=== PATIENT | female | born 1985 | race Two or more races ===

== ENCOUNTER 2016-03-05 08:56 | Observation (INO) | payer OTHER ==
[2016-03-05] VITALS (9 sets, daily range): BP systolic 122–150; BP diastolic 64–88
[~2016-03-05] VITALS: Ht 154.9 cm; Wt 93.9 kg
[~2016-03-05 08:56] MED LIST: CEFAZOLIN 2GM PREMIX 50 ML IV PRN; FENTANYL PF 100 MCG/2 ML VIAL. IV PRN; HYDROMORPHONE 2 MG/ML VIAL. IV PRN; IV RINGERS,LACTATED 1000ML 1,000 ML IV SCH; LIDOCAINE 1% 1 ML SYRINGE. ID PRN; MORPHINE SULFATE 2 MG/ML DISP.SYRIN. IV PRN; ONDANSETRON PF 4 MG/2 ML VIAL. IV PRN; OXYC-323 PO; PROCHLORPERAZINE 10 MG/2 ML VIAL. IV PRN
[2016-03-05] MEDS ORDERED: LIDOCAINE 1% / SOD BICARB 8.4% 20 ML VIAL. IJ ONE ×2 (09:30→10:45)
[2016-03-05 09:46] LABS: NEG OBC UR NEG; POS OBC UR POS
--- NOTE | 2016-03-05 11:09 | RAD ---
Left breast needle localization, 03/05/2016: History: Breast cancer Under mammographic guidance we target the breast biopsy marker at the 11:00 location in the left breast. There has been interval neoadjuvant chemotherapy. No discrete breast mass is currently seen. Under local anesthesia, aseptic conditions and mammographic guidance the Kopan's needle with modified retention wire was passed into this region via a medial approach. The needle was removed and the final images show that the biopsy marker lies directly anterior to the midportion of the thickened part of the retention wire approximately 6.5 cm deep to the skin surface. The patient tolerated the procedure well and was sent to surgery in good condition.
[2016-03-05] MEDS ORDERED: FAMOTIDINE 20 MG/2 ML VIAL ONE (11:36)
[2016-03-05] MEDS ORDERED: LIDOCAINE 2% 100 MG/5 ML DISP.SYRIN. ONE (11:36)
[2016-03-05] MEDS ORDERED: ONDANSETRON PF 4 MG/2 ML VIAL. ONE (11:36)
[2016-03-05] MEDS ORDERED: PROPOFOL 20 ML IV ONE ×3 (11:36→13:08)
[2016-03-05] MEDS ORDERED: FENTANYL PF 100 MCG/2 ML VIAL. ONE ×2 (11:36→13:31)
[2016-03-05] MEDS ORDERED: DEXAMETHASONE SOD PHOS 20 MG/5 ML VIAL. ONE (11:36)
[2016-03-05] MEDS ORDERED: LIDOCAINE 1%/EPI 1:100,000 20 ML VIAL. ONE (11:37)
[2016-03-05] MEDS ORDERED: ISOSULFAN BLUE 50 MG/5 ML VIAL. SQ ONE (11:37)
[2016-03-05] MEDS ORDERED: BUPIVAC MPF-EPI 0.5%-1:200000 30 ML VIAL. ONE (11:37)
--- NOTE | 2016-03-05 12:00 | RAD ---
Indication: Left breast carcinoma. A total of 1.0 mCi of technetium 99m sulfur colloid was injected in the left breast subdermal tissues in the periareolar location in 4 separate aliquots. The patient tolerated well. The patient was sent to surgery in satisfactory condition. No imaging was performed. Impression: Left breast sentinel node injection, as described.
[2016-03-05] MEDS ORDERED: MIDAZOLAM HCL 2 MG/2 ML VIAL. ONE (12:41)
[2016-03-05] MEDS ORDERED: ROCURONIUM 50 MG/5 ML VIAL. ONE (13:01)
[2016-03-05] MEDS ORDERED: SUCCINYLCHOLINE 200 MG/10 ML VIAL. ONE (13:01)
[2016-03-05] MEDS ORDERED: SEVOFLURANE > 120 MINUTES. IH ONE (13:08)
[2016-03-05] MEDS ORDERED: PROPOFOL 50 ML IV ONE ×2 (13:43)
--- NOTE | 2016-03-05 14:32 | RAD ---
Right specimen mammogram, 03/05/2016: History: Breast cancer A single digital mammogram of a surgical specimen from the right breast demonstrates the modified Kopans retention wire within the specimen. The targeted breast biopsy marker is present in the specimen at the C-I level in the specimen container.
[2016-03-05] MEDS ORDERED: ONDANSETRON PF 4 MG/2 ML VIAL. IV PRN (14:45)
[2016-03-05] MEDS ORDERED: HYDROMORPHONE 2 MG/ML VIAL. IV PRN ×3 (14:45→15:00)
[2016-03-05] MEDS ORDERED: 0.9 % SODIUM CHLORIDE 10 ML DISP.SYRIN. IV PRN (14:45)
[2016-03-05] MEDS ORDERED: OXYCODONE/APAP 5/325 TABLET. PO PRN ×2 (14:45)
[2016-03-05] MEDS ORDERED: PROCHLORPERAZINE 10 MG/2 ML VIAL. IV PRN (14:45)
--- NOTE | 2016-03-05 14:56 | PDOC4 ---
Operative Note Operative Note Operative Note: Preoperative Diagnosis: Left breast cancer Postoperative Diagnosis: Same Procedure: Left segmental mastectomy with wire localization, left axillary sentinel lymph node biopsy, removal of Port-A-Cath Surgeon: Orlin Sole Molding Machine Operator: Ramila DURAN Anesthesia: Gen. EBL: 150 mL Specimen: Axillary sentinel lymph nodes 1-5 to pathology, left segmental mastectomy short stitch superficial long stitch lateral to pathology, additional superior, inferior, lateral margins to pathology Drains: None Complications: None Indication: The patient is a 30-year-old female who underwent neoadjuvant chemotherapy for left breast cancer. She is now ready for surgical treatment. She had a very good response to chemotherapy with significant tumor regression. She is interested in breast conservation and has elected for a segmental mastectomy and wire localization will be utilized. We also will include an axillary sentinel lymph node biopsy and removal of the Port-A-Cath as per her oncologist wishes. The risks of surgery were discussed which include bleeding, infection, scar tissue, pain, anesthetic risk, potential need for additional surgery or procedure particularly pending final pathology results. She understands all of this and would like to proceed. Description: The patient was taken to the operating room following wire localization and injection of technetium sulfur colloid in nuclear medicine. Gen. anesthesia was performed. The left breast and axilla were prepped with ChloraPrep and draped in a standard surgical manner. 5 mL of Lymphazurin were injected deep to the nipple areolar complex. Several minutes were allowed to elapse. An incision was made in the skin of the axilla with a scalpel. Cautery dissection was carried down to the axillary tissue. Initial inspection with the radio guided probe showed an area of marked nuclear uptake. Dissection in this region showed blue staining channels directed toward it. This then corresponded to a blue staining lymph node. This was harvested and labeled sentinel lymph node #1 and sent to pathology. Further inspection of the axilla showed several other areas of increased nuclear uptake corresponding to lymph nodes. These were also each harvested from the surrounding tissue with cautery dissection. A total of for additional lymph nodes were removed which were hot and none of them stained blue. They were also sent to pathology for evaluation. There was some additional tissue that was excised in order to reach some of the more deeper sentinel nodes. This was sent in formalin to pathology labeled additional axillary tissue. Palpation showed no gross remaining adenopathy. Frozen section of the 5 lymph nodes showed no evidence of metastatic disease. We then proceeded with the lumpectomy. The wire was entering the breast in the upper inner quadrant. An incision was made in the skin lines of the breast superior to the nipple and closer to the expected area of the wire termination. Cautery dissection was carried down to the breast parenchyma. The wire was identified in its proximal portion. With cautery dissection the lumpectomy specimen was then performed heading in the trajectory of the distal tip of the wire. A fairly generous lumpectomy specimen was obtained and we were able to get around the tip of the wire. Several blood vessels were encountered during this which were readily controlled with cautery. The lumpectomy specimen was tagged with a short silk stitch at the superficial margin and a long stitch at the lateral margin. This was then sent for specimen radiographs. The radiographs confirmed the presence of the biopsy clip. Hemostasis was again readily achieved with cautery. No other gross abnormalities were identified. Some of the deeper breast parenchyma was approximated with interrupted 0 Vicryl sutures to close some of the space. We then directed our attention to the right chest. An incision was made at the site of the prior Port-A-Cath placement scar. Cautery dissection was carried down to the capsule of the port which was opened. The attached Prolene sutures were cut and the Port-A-Cath was readily removed and discarded. The catheter tract was oversewn with a 2-0 Vicryl suture. The subcutaneous tissue at each of the incision sites was approximated with interrupted 3-0 Vicryl. The skin was then closed with a 4-0 Monocryl running suture. Sterile OpSite dressings were placed at each incision. The patient tolerated the procedure well and was sent to the recovery room in stable condition. At the end of the case all counts were correct. ALLEN ACEVEDO MD Mar 05, 2016 14:56
[2016-03-05] MEDS: POTASSIUM CL 20MEQ D5-0.45NACL 1,000 ML IV SCH (17:32)
[2016-03-06] MEDS: POTASSIUM CL 20MEQ D5-0.45NACL 1,000 ML IV SCH (00:43)
[2016-03-06 03:00] VITALS: BP 111/68
[2016-03-06 07:00] VITALS: BP 117/68
--- NOTE | 2016-03-06 08:33 | PDOC ---
PROGRESS NOTES Subjective Subjective doing well Objective Objective Vital Signs Date Time Temp Pulse Resp B/P Pulse Ox O2 Delivery O2 Flow Rate FiO2 03/06/16 03:00 97.9 90 18 111/68 98 Room Air 97.9 03/05/16 20:00 2.0 Intake and Output 03/06/16 07:00 Intake Total 940 ml Output Total 705 ml Balance 235 ml Intake Oral 240 ml IV Total 700 ml Output Urine Total 605 ml Emesis 100 ml Physical Exam Physical Exam dressings intact Assessment Assessment Problems Medical Problems: (1) Breast cancer, left Status: Acute Plan Plan of Care discharge Comment Review of Relevant I have reviewed the following items thomas (where applicable) has been applied. Labs Laboratory Tests Test 03/05/16 08:25 Urine Test Negative (NEG) Medications Current Medications Ondansetron HCl (Zofran) 4 mg PRN Q6HRS PRN IV Nausea; Start 03/05/16 at 07:00 ; Stop 03/06/16 at 06:59; Status DC Fentanyl Citrate (Fentanyl 2ml Vial) 25 mcg PRN Q5MIN PRN IV MILD PAIN; Start 03/05/16 at 07:00; Stop 03/06/16 at 06:59; Status DC Fentanyl Citrate (Fentanyl 2ml Vial) 50 mcg PRN Q5MIN PRN IV MODERATE PAIN Last administered on 03/05/16 15:45; Start 03/05/16 at 07:00; Stop 03/06/16 at 06:59; Status DC Morphine Sulfate 1 mg 1 mg PRN Q10MIN PRN IV SEVERE PAIN; Start 03/05/16 at 07: 00; Stop 03/06/16 at 06:59; Status DC Lactated Ringer's (Iv Lactated Ringers) 1,000 ml @ 30 mls/hr Q24H IV Last administered on 03/05/16 09:46; Start 03/05/16 at 07:00; Stop 03/05/16 at 18:59 ; Status DC Lidocaine HCl 2 ml 1X PRN PRN ID IV START; Start 03/05/16 at 07:00; Stop at 06:59; Status DC Hydromorphone HCl (Dilaudid) 0.5 mg PRN Q10MIN PRN IV SEVERE PAIN, Second choice; Start 03/05/16 at 07:00; Stop 03/06/16 at 06:59; Status DC Prochlorperazine Edisylate 5 mg 5 mg PACU PRN PRN IV NAUSEA; Start 03/05/16 at 07:00; Stop 03/06/16 at 06:59; Status DC Cefazolin Sodium/ Dextrose (Ancef 2gm Premix) 50 ml @ 100 mls/hr 1X PREOP PRN IV PRIOR TO PROCEDURE Last administered on 03/05/16 12:30; Start 03/05/16 at 06 :00; Stop 03/05/16 at 18:00; Status DC Lidocaine/Sodium Bicarbonate (Buffered Lidocaine 1%) 20 ml 1X ONCE IJ Last administered on 03/05/16 10:48; Start 03/05/16 at 09:30; Stop 03/05/16 at 09:31 ; Status DC Lidocaine/Sodium Bicarbonate (Buffered Lidocaine 1%) 0.5 ml 1X ONCE IJ Last administered on 03/05/16 11:41; Start 03/05/16 at 10:45; Stop 03/05/16 at 10:50 ; Status DC Dexamethasone Sodium Phosphate (Decadron) 20 mg STK-MED ONCE .ROUTE ; Start at 11:36; Stop 03/05/16 at 11:37; Status DC Famotidine (Pepcid) 20 mg STK-MED ONCE .ROUTE ; Start 03/05/16 at 11:36; Stop at 11:37; Status DC Ondansetron HCl 4 mg 4 mg STK-MED ONCE .ROUTE ; Start 03/05/16 at 11:36; Stop at 11:37; Status DC Propofol (Diprivan) 20 ml @ As Directed STK-MED ONCE IV ; Start 03/05/16 at 11: 36; Stop 03/05/16 at 11:37; Status DC Lidocaine HCl 100 mg STK-MED ONCE .ROUTE ; Start 03/05/16 at 11:36; Stop at 11:37; Status DC Fentanyl Citrate (Fentanyl 2ml Vial) 100 mcg STK-MED ONCE .ROUTE ; Start at 11:36; Stop 03/05/16 at 11:37; Status DC Lidocaine/ Epinephrine (Xylocaine 1%-Epi 1:100,000) 20 ml STK-MED ONCE .ROUTE ; Start 03/05/16 at 11:37; Stop 03/05/16 at 11:38; Status DC Bupivacaine HCl/ Epinephrine Bitart (Sensorcain-Mpf Epi 0.5%-1:[id number]) 30 ml STK -MED ONCE .ROUTE ; Start 03/05/16 at 11:37; Stop 03/05/16 at 11:38; Status DC Isosulfan Blue (Isosulfan Blue) 50 mg STK-MED ONCE SQ Last administered on 03/05t 12:45; Start 03/05/16 at 11:37; Stop 03/05/16 at 11:38; Status DC Midazolam HCl (Versed) 2 mg STK-MED ONCE .ROUTE ; Start 03/05/16 at 12:41; Stop 03/05/16 at 12:42; Status DC Rocuronium [place] (Zemuron) 50 mg STK-MED ONCE .ROUTE ; Start 03/05/16 at 13:01 ; Stop 03/05/16 at 13:02; Status DC Succinylcholine Chloride 200 mg 200 mg STK-MED ONCE .ROUTE ; Start 03/05/16 at 13:01; Stop 03/05/16 at 13:02; Status DC Propofol (Diprivan) 20 ml @ As Directed STK-MED ONCE IV ; Start 03/05/16 at 13: 08; Stop 03/05/16 at 13:09; Status DC Sevoflurane 90 ml 90 ml STK-MED ONCE IH ; Start 03/05/16 at 13:08; Stop at 13:09; Status DC Propofol (Diprivan) 20 ml @ As Directed STK-MED ONCE IV ; Start 03/05/16 at 13: 08; Stop 03/05/16 at 13:09; Status DC Fentanyl Citrate 100 mcg 100 mcg STK-MED ONCE .ROUTE ; Start 03/05/16 at 13:31; Stop 03/05/16 at 13:32; Status DC Propofol 50 ml @ As Directed STK-MED ONCE IV ; Start 03/05/16 at 13:43; Stop at 13:44; Status DC Propofol (Diprivan) 50 ml @ As Directed STK-MED ONCE IV ; Start 03/05/16 at 13: 43; Stop 03/05/16 at 13:44; Status DC Sodium Chloride 3 ml 3 ml QSHIFT PRN IV AFTER MEDS AND BLOOD DRAWS; Start 03/05 at 14:45 Potassium Chloride/Dextrose/ Sod Cl (KCl 20 Meq In D5W-1/2 NS) 1,000 ml @ 100 mls/hr Q10H IV Last administered on 03/05/16 17:32; Start 03/05/16 at 14:43 Oxycodone/ Acetaminophen (Percocet 5/325) 1 tab PRN Q4HRS PRN PO MILD PAIN, 1ST CHOICE Last administered on 03/05/16 18:07; Start 03/05/16 at 14:45 Oxycodone/ Acetaminophen (Percocet 5/325) 2 tab PRN Q4HRS PRN PO MODERATE PAIN , SEVERE PAIN; Start 03/05/16 at 14:45 Hydromorphone HCl (Dilaudid) 0.2 mg Q2HR PRN IV PAIN; Start 03/05/16 at 14:45; Stop 03/05/16 at 14:50; Status DC Ondansetron HCl (Zofran) 4 mg PRN Q6HRS PRN IV NAUESA, 1ST CHOICE Last administered on 03/05/16 17:44; Start 03/05/16 at 14:45 Prochlorperazine Edisylate (Compazine) 5 mg PRN Q6HRS PRN IV N/V, 2nd Choice, MR X1; Start 03/05/16 at 14:45 Hydromorphone HCl (Dilaudid) 0.5 mg PRN Q2HRS PRN IV PAIN; Start 03/05/16 at 15 :00 Hydromorphone HCl (Dilaudid) 0.2 mg PRN Q2HRS PRN IV PAIN; Start 03/05/16 at 14 :50 Active Scripts Active Reported Percocet 5-325 Mg Tablet (Oxycodone/Acetaminophen) 1 Each Tablet 1-2 Tab PO Q4- 6HRS No Known Medications Prior To Admisstion (Info) Each 1 Each Vitals/I & O Vital Sign - Last 24 Hours 03/05/16 03/05/16 03/05/16 03/05/16 09:37 09:43 15:19 15:19 Temp 97.0 97.0 97.5 97.0 97.0 97.5 Pulse 85 85 97 Resp 20 20 16 B/P 130/65 135/59 Pulse Ox 100 100 95 O2 Delivery Room Air Simple Mask Mask O2 Flow Rate 10 10 03/05/16 03/05/16 03/05/16 03/05/16 15:34 15:40 15:45 15:49 Pulse 110 108 Resp 18 18 18 B/P 143/64 149/76 Pulse Ox 97 96 91 O2 Delivery Simple Mask Nasal Cannula Nasal Cannula Room Air O2 Flow Rate 10 2 2.0 03/05/16 03/05/16 03/05/16 03/05/16 16:04 16:19 16:30 16:30 Temp 97.1 97.1 97.7 97.7 97.1 97.1 97.7 97.7 Pulse 105 108 114 114 Resp 18 18 20 20 B/P 133/61 154/53 132/86 132/86 Pulse Ox 96 96 98 98 O2 Delivery Nasal Cannula Nasal Cannula Nasal Cannula Nasal Cannula O2 Flow Rate 3 2 2.0 2.0 03/05/16 03/05/16 03/05/16 03/05/16 16:45 17:00 17:15 18:00 Temp 97.9 97.9 97.9 97.9 Pulse 110 102 95 99 Resp 18 18 18 18 B/P 150/78 127/69 141/82 126/66 Pulse Ox 98 96 96 95 O2 Delivery Nasal Cannula Room Air Room Air Room Air O2 Flow Rate 2.0 03/05/16 03/05/16 03/05/16 03/05/16 18:07 18:17 18:30 19:07 Pulse 99 Resp 18 16 B/P 135/88 Pulse Ox 98 95 95 O2 Delivery Room Air Room Air Room Air Room Air 03/05/16 03/05/16 03/05/16 03/05/16 19:30 20:00 20:30 23:00 Temp 98.1 98.1 98.1 98.1 Pulse 103 110 95 Resp 18 18 18 B/P 135/86 145/86 122/64 Pulse Ox 96 95 97 O2 Delivery Room Air Room Air Room Air Room Air O2 Flow Rate 2.0 03/06/16 03:00 Temp 97.9 97.9 Pulse 90 Resp 18 B/P 111/68 Pulse Ox 98 O2 Delivery Room Air Intake and Output 03/05/16 03/05/16 03/06/16 15:00 23:00 07:00 Intake Total 50 ml 770 ml 120 ml Output Total 380 ml 325 ml Balance 50 ml 390 ml -205 ml ALLEN ACEVEDO MD Mar 06, 2016 08:33
--- NOTE | 2016-03-06 08:35 | DISCH ---
DISCHARGE INSTRUCTIONS Condition on Discharge Condition on Discharge: Stable Activity After Discharge Activity Instructions for Disc: Resume previous activity Diet after Discharge Diet after Discharge: Regular Wound Incision Care Wound/Incision Care: Other, see below (keep dressings clean and dry) Follow-Up Follow up with: Dr Acevedo in 1 week in office, ALLEN ACEVEDO MD Mar 06, 2016 08:35
--- NOTE | 2016-03-06 08:36 | PDOC3 ---
Discharge Summary Visit Information Date of Admission: Mar 05, 2016 Date of Discharge: Mar 06, 2016 Admitting Diagnosis: Left breast cancer Final Diagnosis Problems Medical Problems: (1) Breast cancer, left Status: Acute Brief Hospital Course Allergies Allergies Coded Allergies Type Severity Reaction Last Updated Verified No Known Drug Allergies 03/05/16 No Vital Signs Vital Signs Date Time Temp Pulse Resp B/P Pulse Ox O2 Delivery O2 Flow Rate FiO2 03/06/16 03:00 97.9 90 18 111/68 98 Room Air 97.9 03/05/16 20:00 2.0 Lab Results Laboratory Tests Test 03/05/16 08:25 Urine Test Negative (NEG) Brief Hospital Course Ms. Jones is a 30 old female who presented with left breast cancer. She underwent a left segmental mastectomy with sentinel lymph node biopsy. Her postoperative course was uneventful and she is stable for discharge on POD 1. Discharge Information Scheduled Oxycodone/Apap 5-325 (Percocet 5-325 Mg Tablet) 1-2 TAB PO Q4-6HRS (Reported) Miscellaneous Medications Info (No Known Medications Prior To Admisstion) 1 EACH (Reported) ALLEN ACEVEDO MD Mar 06, 2016 08:36
[2016-03-06 11:00] VITALS: BP 119/65
--- NOTE | 2016-03-10 16:45 | PATHOLOGY ---
PATHOLOGY REPORT * * * * * * * * FINAL DIAGNOSIS: A. Lymph node, sentinel lymph node #1 hot and blue: - Negative for tumor. B. Lymph node, sentinel lymph node #2 hot: - Negative for tumor. C. Lymph node, sentinel lymph node #3 hot: - Negative for tumor. D. Lymph nodes and adipose tissue, additional axillary tissue: - Four lymph nodes negative for tumor (0/4). E. Lymph nodes, sentinel lymph node #4 hot: - Three lymph nodes negative for tumor (0/3). F. Lymph node, sentinel lymph node #5 hot: - Negative for tumor. G. Breast tissue, left breast lumpectomy: - No residual invasive ductal carcinoma identified. - Previous biopsy site showing biopsy marker with fibrosis, chronic inflammation, remote hemorrhage, and focal foreign body giant cell reaction. - Inked margins of resection negative for tumor. - Stromal fibrosis with focal mild duct ectasia and duct stasis. - Fibroadenomatous change, focal. H. Breast tissue, additional inferior margin: - Focal stromal fibrosis-negative for tumor. I. Breast tissue, additional superior margin: - Focal stromal fibrosis-negative for tumor. J. Breast tissue, additional lateral margin: - Stromal fibrosis and focal mild duct ectasia-negative for tumor. - Fibroadenomatous change, focal. COMMENT: Sections of the left breast lumpectomy reveal a previous biopsy site showing a biopsy marker with associated fibrosis, chronic inflammation, remote hemorrhage, and focal foreign body giant cell reaction. There is no residual invasive high-grade ductal carcinoma. There are a total of seven sentinel lymph nodes. Immunoperoxidase stains for AE1/AE3 are obtained on the sentinel lymph nodes and yield the following results: AE1/AE3 (A1): negative for tumor AE1/AE3 (B1): negative for tumor AE1/AE3 (C1): negative for tumor AE1/AE3 (E1): three lymph nodes negative for tumor AE1/AE3 (F1): negative for tumor Thus there are seven sentinel lymph nodes which are negative for tumor. There are four additional axillary lymph nodes submitted for examination, all of which are negative for tumor. (JPM:; d/t: 03/09/16) Special Stain: AE1/AE3 (A1, B1, C1, E1, F1) REPORT ELECTRONICALLY SIGNED BY: Carlos Monroe M.D. DATE/TIME: 03/10/2016 16:44 * * * * * * * * GROSS PATHOLOGY: A. The specimen is received fresh for intraoperative consultation and is designated "lymph node #1 hot and blue." This consists of an irregular segment of yellow-red fatty appearing tissue measuring up to 3.0 cm in greatest dimension and showing focal dark brown cautery changes. Sectioning reveals a single brown lymph node showing focal bluish discoloration measuring up to 1.2 cm in greatest dimension. There is a rounded conner marker associated with this lymph node. There is no gross evidence of tumor replacement. This is submitted for frozen section as FSA1. The tissue remaining from frozen section is submitted for permanent sections as A1. B. The specimen is received fresh for intraoperative consultation and is designated "lymph node #2 hot." This consists of an ovoid-shaped segment of yellow-red fatty appearing tissue measuring up to 3.6 x 3.0 cm. On sectioning, this contains a pinkish brown partially fatty replaced lymph node measuring up to 1.5 cm. There is no gross evidence of tumor replacement. This lymph node is submitted for frozen section as FSB1. The tissue remaining from frozen section is submitted for permanent sections as B1. C. The specimen is received fresh for intraoperative consultation and is designated "lymph node #3 hot." This consists of a segment of yellow-red fatty tissue measuring up to 2.0 cm in greatest dimension. This contains a pinkish brown lymph node measuring up to 0.8 cm in greatest dimension. This is submitted for frozen section as FSC1. The tissue remaining from frozen section is submitted for permanent sections as C1. (MIKEM:mgpriyanka; d/t: 03/05/16) D. The specimen is received in formalin labeled "Marbella Robert, additional axillary tissue". Received are multiple segments of yellow-lynch lobulated tissue measuring 4.8 x 4.6 x 2.0 cm in aggregate dimensions. Dissection and palpation of the specimen reveals four readily identifiable lymph nodes ranging in size from 0.4 to 1.1 cm in maximum dimensions. The lymph nodes are submitted as follows: D1 two intact lymph nodes D2-D3 one bisected lymph node in each cassette. (CAA; 03/06/2016) E. The specimen is received fresh for intraoperative consultation and is designated "lymph node #4 hot." This consists of an irregular segment of yellow-red fatty appearing tissue measuring up to 3.4 cm in greatest dimension. Sectioning reveals a few small slightly firm lymph nodes, the largest of which measures up to 0.5 cm. These are submitted for frozen section as FSE1. The tissue remaining from frozen section is submitted for permanent sections as E1. F. The specimen is received fresh for intraoperative consultation and is designated "lymph node #5 hot." This consists of a segment of yellow-red fatty appearing tissue measuring up to 1.6 cm in greatest dimension. This contains a yellowish lynch lymph node measuring up to 0.9 cm. This is submitted for frozen section as FSF1. The tissue remaining from frozen section is submitted for permanent sections as F1. (JPM:mgr; d/t: 03/05/16) G. The specimen is received in formalin labeled "Marbella Zaidi, left lumpectomy, short stitch superficial, long stitch lateral". Received is a 131 g lumpectomy specimen oriented with a short suture designating the superficial/anterior margin and a long suture designating the lateral margin. The specimen measures 11.8 cm from medial to lateral, 9.1 cm from superficial/anterior to deep/posterior, and 2.3 cm from superior to inferior. There is a localization wire present which enters through the superficial/anterior/medial aspect. The specimen is inked as follows: Superior-blue, inferior-green, lateral-red, medial-yellow, superficial/anterior-black, deep/posterior-orange. Sectioning reveals white-lynch, fibrous yellow-lynch, lobulated cut surfaces throughout, with the fibrous tissue focused from the middle aspect to lateral aspect of the specimen. A previous biopsy site is not grossly distinct; however, a metallic clip is located embedded within the fibrous tissue. The fibrous tissue encompasses approximately 35% of the specimen. The specimen is submitted representatively as follows: G1 most lateral margin G2 most medial margin G3-G10 health and safety representative sections from fibrous tissue, with the sections where the clip was embedded submitted in cassettes G9 and G10. The cold ischemic time is 24 minutes. The total formalin fixation time is 65 hours and 50 minutes. H. The specimen is received in formalin labeled "Marbella Robert, inferior additional margin". Received is a 10 g unoriented segment of yellow-lynch, lobulated to white-lynch, fibrous tissue measuring 5.0 x 3.5 x 1.7 cm in greatest dimensions. The surgical margin is inked. Sectioning reveals bright yellow, lobulated to white-lynch, fibrous cut surfaces throughout with no grossly distinct residual tumor. Alternating sections are submitted in cassettes H1 through H6. The cold ischemic time is 7 minutes. The total formalin fixation time is 65 hours and 27 minutes. I. The specimen is received in formalin labeled "Marbella Robert, superior additional margin". Received is a 3 g unoriented segment of yellow-lynch lobulated tissue measuring 4.1 x 2.7 x 0.9 cm in greatest dimensions. The surgical margin is inked. Sectioning reveals yellow-lynch, lobulated cut surfaces throughout with no grossly distinct nodules or lesions. The specimen is submitted entirely in cassettes I1 through I5. The cold ischemic time is 7 minutes. The total formalin fixation time is 65 hours and 27 minutes. J. The specimen is received in formalin labeled "Marbella Robert, lateral additional margin". Received is a 4 g unoriented segment of yellow-lynch lobulated to white-lynch fibrous tissue measuring 3.9 x 2.7 x 1.0 cm in greatest dimensions. The surgical margin is inked. Sectioning reveals white-lynch, fibrous to yellow-lynch, lobulated cut surfaces throughout with no grossly distinct nodules or lesions. The specimen is submitted entirely in cassettes J1-J5. The cold ischemic time is 7 minutes. The total formalin fixation time is 65 hours and 27 minutes. (CAA; 03/06/2016) FROZEN SECTION DIAGNOSIS: (Eyal Monroe M.D.) A. Lymph node #1 hot and blue: - Negative for tumor. The results are telephoned to Dr. Ordaz in the operating room. B. Lymph node #2 hot: - Negative for tumor. The results are telephoned to Dr. Ordaz in the operating room. C. Lymph node #3 hot: - Negative for tumor. The results are telephoned to Dr. Ordaz in the operating room. E. Lymph node #4 hot: - Negative for tumor. The results are telephoned to Dr. Ordaz in the operating room. F. Lymph node #5 hot: - Negative for tumor. The results are telephoned to Dr. Ordaz in the operating room. (JPM:; d/t: 03/05/16) Testing performed by [facility] at [place] [address] INITIAL CPT CODE(S): 72291(6), 44628(4), 88810(5), 44727, 56747(4) Professional services performed by [facility] at [address] [address] Technical services performed by [facility] at [address] [place] [address], [address], [place] [address]. SPECIMEN(S) RECEIVED: A.[place] lymph node #1, hot and blue B.[place] lymph node #2, hot C.[place] lymph node #3, hot D.Additional axillary tissue E.[place] lymph node #4, hot F.[place] lymph node #5, hot G.Left lumpectomy H.Inferior additional margins I.Superior additional margins J.Lateral additional margins CLINICAL HISTORY: Malignant neoplasm left breast PATIENT: MARBELLA ZAIDI /AGE: 506/10/1985 (Age: 30) PATIENT #: [id number] ALT CASE #: SPECIMEN COLLECTION DATE: 03/05/2016 SPECIMEN RECEIVED DATE: 03/05/2016 [facility] - [address] [place] [address] - PHONE: [phone] * * * END OF REPORT * * *
== END 2016-03-06 11:15 | disposition home or self-care (01) ==
LOC: MAMMO 08:56 → 4 NORTH 14:43
PROVIDERS: ADMIT Surgery; ATTEND Surgery
DX: C50.912 Malignant neoplasm of unspecified site of left female breast (principal)
CPT/HCPCS: 19281; 19301; 36590; 38500; 38792; 76098; 81025; 96374; A9541; C1769; G0378; G0379; J0330; J0690; J1100; J2250; J2405; J2704; J3010; Q9968; S0028; 88305; 88307; 88342; J3490; J7120; G0641

== ENCOUNTER → 2016-04-06 | Outpatient (CLI) | payer OTHER ==
[~2016-04-06] MED LIST changes: -CEFAZOLIN 2GM PREMIX 50 ML IV PRN; -FENTANYL PF 100 MCG/2 ML VIAL. IV PRN; -HYDROMORPHONE 2 MG/ML VIAL. IV PRN; -IV RINGERS,LACTATED 1000ML 1,000 ML IV SCH; -LIDOCAINE 1% 1 ML SYRINGE. ID PRN; -MORPHINE SULFATE 2 MG/ML DISP.SYRIN. IV PRN; -ONDANSETRON PF 4 MG/2 ML VIAL. IV PRN; -PROCHLORPERAZINE 10 MG/2 ML VIAL. IV PRN
[2016-04-06 09:21] LABS: BASO # 0.1 x10^3/uL (0.0-0.2); BASO % 1 % (0-3); EOS % 3 % (0-3); HEMATOCRIT 29.4 % (36.0-47.0); HEMOGLOBIN 9.6 g/dL (12.0-15.5); LYMPH # 1.8 x10^3/uL (1.0-4.8); LYMPH % 30 % (24-48); MEAN CORPUSCULAR HEMOGLOBIN 24 pg (25-35); MEAN CORPUSCULAR HGB CONC 33 g/dL (31-37); MEAN CORPUSCULAR VOLUME 75 fL (79-100); MONO % 12 % (0-9); NEUT % 55 % (31-73); PLATELET COUNT 219 x10^3/uL (140-400); RED BLOOD COUNT 3.93 x10^6/uL (3.50-5.40); RED CELL DISTRIBUTION WIDTH 16.9 % (11.5-14.5); WHITE BLOOD COUNT 6.1 x10^3/uL (4.0-11.0)
[2016-04-06 09:36] LABS: % SAT IRON 11 % (15-34); IRON,SERUM 33 ug/dL (50-170)
[2016-04-06 09:59] LABS: ALBUMIN 3.5 g/dL (3.4-5.0); ALBUMIN/GLOBULIN RATIO 0.8 (1.0-1.7); CALCIUM 8.9 mg/dL (8.5-10.1); CREATININE 0.5 mg/dL (0.6-1.0); GFR 145.9; MAGNESIUM 1.9 mg/dL (1.8-2.4); POTASSIUM 4.2 mmol/L (3.5-5.1); TOTAL BILIRUBIN 0.2 mg/dL (0.2-1.0); TOTAL PROTEIN 7.9 g/dL (6.4-8.2)
== END | disposition home or self-care (01) ==
LOC: LAB 08:53
PROVIDERS: ATTEND Internal Medicine Hematology & Oncology
DX: C50.212 Malignant neoplasm of upper-inner quadrant of left female breast (principal); D50.8 Other iron deficiency anemias
CPT/HCPCS: 36415; 80053; 82728; 83540; 83550; 83735; 84466; 85027

== ENCOUNTER → 2016-07-24 | Outpatient (CLI) | payer OTHER ==
[2016-07-24 16:41] LABS: BASO % 1 % (0-3); EOS % 1 % (0-3); HEMATOCRIT 36.3 % (36.0-47.0); HEMOGLOBIN 11.9 g/dL (12.0-15.5); LYMPH # 2.5 x10^3/uL (1.0-4.8); LYMPH % 39 % (24-48); MEAN CORPUSCULAR HEMOGLOBIN 24 pg (25-35); MEAN CORPUSCULAR HGB CONC 33 g/dL (31-37); MEAN CORPUSCULAR VOLUME 73 fL (79-100); MONO % 9 % (0-9); NEUT % 50 % (31-73); PLATELET COUNT 235 x10^3/uL (140-400); WHITE BLOOD COUNT 6.3 x10^3/uL (4.0-11.0)
[2016-07-24 17:09] LABS: ALBUMIN 3.6 g/dL (3.4-5.0); CALCIUM 8.8 mg/dL (8.5-10.1); CREATININE 0.5 mg/dL (0.6-1.0); GFR 144.9; POTASSIUM 3.9 mmol/L (3.5-5.1); TOTAL BILIRUBIN 0.2 mg/dL (0.2-1.0); TOTAL PROTEIN 7.2 g/dL (6.4-8.2)
[2016-07-26 13:21] LABS: CA 27.29 9.3 U/mL (0.0-38.6)
[2016-07-28 09:18] LABS: CEA 0.8 ng/mL (0.0-4.7)
== END | disposition home or self-care (01) ==
LOC: LAB 16:25
PROVIDERS: ATTEND Internal Medicine Hematology & Oncology
DX: C50.212 Malignant neoplasm of upper-inner quadrant of left female breast (principal)
CPT/HCPCS: 36415; 80053; 82378; 85027; 86300

== ENCOUNTER → 2016-11-02 | Outpatient (CLI) | payer OTHER ==
[~2016-11-02] MED LIST changes: +CONTRAST GIVEN MC PRN; +IOHEXOL 240 MG/ML 50ML VIAL. PO ONE; +IOHEXOL 300 MG/ML 75 ML VIAL IV ONE
--- NOTE | 2016-11-02 10:51 | RAD ---
Examination: CT chest abdomen pelvis with oral and IV contrast History: History of breast cancer Comparison: 10/09/2015 Technique: Axial CT images of the chest abdomen pelvis were performed with IV contrast. Coronal and sagittal reformats were performed. Oral contrast was used. PQRS Compliance Statement: One or more of the following individualized dose reduction techniques were utilized for this examination: 1. Automated exposure control 2. Adjustment of the mA and/or kV according to patient size 3. Use of iterative reconstruction technique Findings: The visualized thyroid gland grossly appears unremarkable. The central airways are patent. The heart size grossly appears unremarkable. No evidence of radiologically significant mediastinal lymphadenopathy identified. No obvious abnormally enlarged axillary lymph nodes identified. There is diffuse thickening of the skin of the left breast with mild prominence of the left breast tissue particularly in the upper inner portion. The lungs are clear. The visualized liver, spleen, adrenals grossly appears unremarkable. The visualized pancreas grossly appears unremarkable. The gallbladder is mildly distended. The stomach is mildly distended. The small bowel is nondilated. Feces and gas noted in the colon. Urinary bladder is mildly distended. The visualized uterus, adnexa grossly appears unremarkable. No significant free fluid identified in the pelvis. The bilateral kidneys enhance symmetrically. No evidence of retroperitoneal lymphadenopathy identified. The vertebral body heights are maintained. No evidence of listhesis identified. Impression: 1. Diffuse skin thickening of the left breast with irregularity identified in the left breast tissue. Differential includes radiation changes, left breast malignancy. Recommend mammogram for further evaluation. 2. No evidence of metastasis identified.
--- NOTE | 2016-11-02 13:43 | RAD ---
Bone Scintigraphy - Whole Body: . Radiopharmaceutical: 25 mCi Tc-99m MDP I.V. History: History of breast cancer, follow-up. Comparison: 10/09/2015 Findings: Delayed anterior and posterior whole body bone scintigraphy was performed. There is normal distribution of activity throughout the skeleton. Symmetric increased radiotracer uptake identified in the skull bones similar to prior exam probably physiologic. Impression: No evidence of osteoblastic skeletal metastasis.
--- NOTE | 2016-11-02 15:17 | RAD ---
DATE: 11/02/2016. EXAM: ULTRASOUND BREAST LEFT, MAMMOGRAPHY DIGITAL DIAGNOSTIC BILATERAL. HISTORY: Personal history of left breast cancer status post breast conservation therapy. Routine surveillance. COMPARISON: 06/04/2015, 08/08/2015. This study was interpreted with the benefit of Computerized Aided Detection (CAD). FINDINGS: The breast parenchyma is dense, which could reduce sensitivity of mammography. Breast parenchyma level density D.. Skin thickening and interstitial prominence on the left are consistent with interval changes of left breast conservation therapy. A few calcifications along the superior aspect of the periareolar region are stable and likely benign. There is a new small density medially on the left CC projection measuring 6 mm. This does not completely resolve on spot compression. On today's sonography, there is no clear correlate for the small density medially. Irregular hypoechoic regions at the 11:00 position correspond with the lumpectomy and post treatment site. There is no clearly suspicious sonographic finding. On the right, there is no suspicious mammographic finding. BI-RADS CATEGORY: 3 PROBABLY BENIGN FINDING(S)-SHORT INTERVAL FOLLOW-UP SUGGESTED. RECOMMENDED FOLLOW-UP: 6M 6 MONTH FOLLOW-UP. A small nodule medially on the left CC view is most likely post treatment change. There is no sonographic correlate. Mammographic follow-up is recommended in 6 months to confirm stability. PQRS compliance statement: Patient information was entered into a reminder system with a target due date 05/02/2017 for the next mammogram. Mammography is a sensitive method for finding small breast cancers, but it does not detect them all and is not a substitute for careful clinical examination. A negative mammogram does not negate a clinically suspicious finding and should not result in delay in biopsying a clinically suspicious abnormality. "Our facility is accredited by the [employer] Mammography [employer]."
== END | disposition home or self-care (01) ==
LOC: NM 08:14
PROVIDERS: ATTEND Internal Medicine Medical Oncology
DX: C50.212 Malignant neoplasm of upper-inner quadrant of left female breast (principal); Z85.3 Personal history of malignant neoplasm of breast
CPT/HCPCS: 71260; 74177; 76641; 78306; 96374; A9503; G0204; Q9966; Q9967; 77066

== ENCOUNTER → 2016-11-09 | Outpatient (CLI) | payer OTHER ==
[~2016-11-09] MED LIST changes: -CONTRAST GIVEN MC PRN; -IOHEXOL 240 MG/ML 50ML VIAL. PO ONE; -IOHEXOL 300 MG/ML 75 ML VIAL IV ONE
[2016-11-09 17:01] LABS: BASO # 0.1 x10^3/uL (0.0-0.2); BASO % 1 % (0-3); EOS % 2 % (0-3); HEMATOCRIT 35.6 % (36.0-47.0); HEMOGLOBIN 11.7 g/dL (12.0-15.5); LYMPH # 2.3 x10^3/uL (1.0-4.8); LYMPH % 36 % (24-48); MEAN CORPUSCULAR HEMOGLOBIN 25 pg (25-35); MEAN CORPUSCULAR HGB CONC 33 g/dL (31-37); MEAN CORPUSCULAR VOLUME 77 fL (79-100); MONO % 6 % (0-9); NEUT % 56 % (31-73); PLATELET COUNT 253 x10^3/uL (140-400); RED BLOOD COUNT 4.65 x10^6/uL (3.50-5.40); RED CELL DISTRIBUTION WIDTH 14.5 % (11.5-14.5); WHITE BLOOD COUNT 6.6 x10^3/uL (4.0-11.0)
[2016-11-09 17:19] LABS: ALBUMIN 3.6 g/dL (3.4-5.0); CALCIUM 9.1 mg/dL (8.5-10.1); CREATININE 0.6 mg/dL (0.6-1.0); GFR 117.4; POTASSIUM 3.5 mmol/L (3.5-5.1); TOTAL BILIRUBIN 0.4 mg/dL (0.2-1.0); TOTAL PROTEIN 7.2 g/dL (6.4-8.2)
[2016-11-10 17:15] LABS: CA 27.29 <3.5 U/mL (0.0-38.6)
[2016-11-12 05:22] LABS: CEA 0.7 ng/mL (0.0-4.7)
== END | disposition home or self-care (01) ==
LOC: LAB 16:16
PROVIDERS: ATTEND Nurse Practitioner
DX: C50.212 Malignant neoplasm of upper-inner quadrant of left female breast (principal)
CPT/HCPCS: 36415; 80053; 82378; 85025; 86300

== ENCOUNTER 2018-09-07 09:25 | Emergency (ER) | payer SELFPAY ==
[~2018-09-07] VITALS: Ht 165.1 cm; Wt 85.7 kg
[~2018-09-07 09:25] MED LIST changes: -OXYC-323 PO; +OXYC1TAB15 PO
[2018-09-07] MEDS ORDERED: ONDANSETRON PF 4 MG/2 ML VIAL. IV ONE (10:00)
[2018-09-07] MEDS ORDERED: fentaNYL PF VIAL 100 MCG/2 ML VIAL IV ONE ×2 (10:00→11:30)
--- NOTE | 2018-09-07 10:09 | PHYS DOC ---
Past Medical History Past Medical History: Cancer Additional Past Medical Histor: PT REPORTS BREAST CA Past Surgical History: Other Additional Past Surgical Histo: LT BREAST LUMPECTOMY Alcohol Use: None Drug Use: None Adult General Chief Complaint Chief Complaint: ABDOMINAL PAIN HPI HPI Patient is a 33-year-old female presents with a sudden onset of right lower quadrant abdominal pain. She states she does have some associated pain in her back. She denies the possibility of . She denies any vaginal bleeding discharge or dyspareunia. She denies any fever chills or sweats. She denies any dysuria or gross hematuria. She states the pain started suddenly a couple of hours ago and has been unrelenting. She has not taken anything at home for the discomfort.[] Review of Systems Review of Systems Constitutional: Denies fever or chills [] Eyes: Denies change in visual acuity, redness, or eye pain [] HENT: Denies nasal congestion or sore throat [] Respiratory: Denies cough or shortness of breath [] Cardiovascular: No additional information not addressed in HPI [] GI: Per history of present illness[] : Denies dysuria or hematuria [] Musculoskeletal: Denies back pain or joint pain [] Integument: Denies rash or skin lesions [] Neurologic: Denies headache, focal weakness or sensory changes [] Endocrine: Denies polyuria or polydipsia [] All other systems were reviewed and found to be within normal limits, except as documented in this note. Current Medications Current Medications Current Medications Medications (Trade) Dose Ordered Sig/Mike Start Time Stop Time Status Last Admin Dose Admin Fentanyl Citrate (Fentanyl 2ml Vial) 50 mcg 1X ONCE 09/07/18 10:00 09/07/18 10:01 DC 09/07/18 10:06 50 MCG Ondansetron HCl (Zofran) 4 mg 1X ONCE 09/07/18 10:00 09/07/18 10:01 DC 09/07/18 10:04 4 MG Allergies Allergies Allergies Coded Allergies Type Severity Reaction Last Updated Verified No Known Drug Allergies 03/05/16 No Physical Exam Physical Exam Constitutional: Well developed, well nourished, moderate distress, non-toxic appearance. [] HENT: Normocephalic, atraumatic, bilateral external ears normal, oropharynx moist, no oral exudates, nose normal. [] Eyes: PERRLA, EOMI, conjunctiva normal, no discharge. [] Neck: Normal range of motion, no tenderness, supple, no stridor. [] Cardiovascular:Heart rate regular rhythm, no murmur [] Lungs & Thorax: Bilateral breath sounds clear to auscultation [] Abdomen: Bowel sounds normal, soft, no tenderness, no rebound or guarding no masses, no pulsatile masses. [] Skin: Warm, dry, no erythema, no rash. [] Back: No tenderness, no CVA tenderness. [] Extremities: No tenderness, no cyanosis, no clubbing, ROM intact, no edema. [] Neurologic: Alert and oriented X 3, normal motor function, normal sensory function, no focal deficits noted. [] Psychologic: Anxious, tearful. [] Current Patient Data Vital Signs Vital Signs Date Time Temp Pulse Resp B/P (MAP) Pulse Ox O2 Delivery O2 Flow Rate FiO2 09/07/18 10:06 24 99 Room Air 09/07/18 09:39 98.3 93 139/79 (99) 98.3 Lab Values Laboratory Tests Test 09/07/18 09:37 09/07/18 09:42 09/07/18 09:50 Urine Collection Type Unknown Urine Color Yellow Urine Clarity Clear Urine pH 7.5 Urine Specific [place] 1.025 Urine Protein Negative mg/dL (NEG-TRACE) Urine Glucose (UA) Negative mg/dL (NEG) Urine Ketones (Stick) Negative mg/dL (NEG) Urine Blood Negative (NEG) Urine Nitrite Negative (NEG) Urine Bilirubin Negative (NEG) Urine Urobilinogen Dipstick 1.0 mg/dL (0.2 mg/dL) Urine Leukocyte Esterase Negative (NEG) Urine RBC 0 /HPF (0-2) Urine WBC Occ /HPF (0-4) Urine Squamous Epithelial Cells Mod /LPF Urine Bacteria 0 /HPF (0-FEW) Urine Mucus Marked /LPF POC Urine HCG, Qualitative Hcg negative (Negative) White Blood Count 12.4 x10^3/uL (4.0-11.0) H Red Blood Count 4.74 x10^6/uL (3.50-5.40) Hemoglobin 10.5 g/dL (12.0-15.5) L Hematocrit 32.2 % (36.0-47.0) L Mean Corpuscular Volume 68 fL (79-100) L Mean Corpuscular Hemoglobin 22 pg (25-35) L Mean Corpuscular Hemoglobin Concent 33 g/dL (31-37) Red Cell Distribution Width 17.1 % (11.5-14.5) H Platelet Count 409 x10^3/uL (140-400) H Neutrophils (%) (Auto) 84 % (31-73) H Lymphocytes (%) (Auto) 12 % (24-48) L Monocytes (%) (Auto) 4 % (0-9) Eosinophils (%) (Auto) 0 % (0-3) Basophils (%) (Auto) 1 % (0-3) Neutrophils # (Auto) 10.4 x10^3/uL (1.8-7.7) H Lymphocytes # (Auto) 1.5 x10^3/uL (1.0-4.8) Monocytes # (Auto) 0.4 x10^3/uL (0.0-1.1) Eosinophils # (Auto) 0.0 x10^3/uL (0.0-0.7) Basophils # (Auto) 0.1 x10^3/uL (0.0-0.2) Platelet Estimate Pending Sodium Level 142 mmol/L (136-145) Potassium Level 3.9 mmol/L (3.5-5.1) Chloride Level 105 mmol/L (98-107) Carbon Dioxide Level 24 mmol/L (21-32) Anion Gap 13 (6-14) Blood Urea Nitrogen 12 mg/dL (7-20) Creatinine 0.8 mg/dL (0.6-1.0) Estimated GFR (Cockcroft-Gault) 83.1 BUN/Creatinine Ratio 15 (6-20) Glucose Level 135 mg/dL (70-99) H Calcium Level 9.3 mg/dL (8.5-10.1) Total Bilirubin 0.3 mg/dL (0.2-1.0) Aspartate Amino Transferase (AST) 22 U/L (15-37) Alanine Aminotransferase (ALT) 37 U/L (14-59) Alkaline Phosphatase 102 U/L (46-116) Total Protein 7.8 g/dL (6.4-8.2) Albumin 3.9 g/dL (3.4-5.0) Albumin/Globulin Ratio 1.0 (1.0-1.7) Lipase 94 U/L (73-393) Laboratory Tests 09/07/18 09:50 Laboratory Tests 09/07/18 09:50 EKG EKG [] Radiology/Procedures Radiology/Procedures [] Impressions: REASON: RLQ Pain PROCEDURE: CT ABDOMEN PELVIS WO CONTRAST Examination: CT of the abdomen pelvis without contrast History: Right lower quadrant abdominal pain COMPARISON: None available TECHNIQUE: Axial CT images of the abdomen and pelvis without contrast. Coronal and sagittal reformats are performed Exposure: One or more of the following individualized dose reduction techniques were utilized for this examination: 1. Automated exposure control 2. Adjustment of the mA and/or kV according to patient size 3. Use of iterative reconstruction technique FINDINGS: The bibasilar lungs are clear. No evidence of free air identified in the abdomen. The evaluation of the solid organs is limited due to lack of IV contrast. The evaluation of bowel is limited due to lack of oral contrast. The visualized liver demonstrates mild diffuse decreased attenuation. The visualized spleen, adrenals grossly appears unremarkable. The gallbladder is mildly distended. The stomach is mildly distended. The visualized pancreas grossly appears unremarkable. The small bowel is nondilated. The appendix is normal. Feces and gas noted in the colon. Moderate right-sided hydronephrosis and hydroureter identified with a 4 mm calculus distal to the right ureterovesical junction. A 2 mm calculus identified in the left kidney. Urinary bladder is mildly distended. The caliber of the aorta grossly appears unremarkable. No evidence of lytic bony destructive lesion. IMPRESSION: 1. Moderate right-sided hydronephrosis and hydroureter with a 4 mm calculus identified just distal to the right ureterovesical junction. 2. Punctate 2 mm calculus left kidney. 3. Hepatic steatosis. Course & Med Decision Making Course & Med Decision Making Pertinent Labs and Imaging studies reviewed. (See chart for details) [ED course: Evaluation reveals a 33-year-old female with sudden onset right lower abdominal pain. The nature of her pain and the sudden onset leading me to believe this may be related to renal colic. Did a CT scan which showed a 4 mm right UVJ stone. She was given IV fluids and fentanyl during her stay in the department which did help alleviate her symptoms.] Dragon Disclaimer Dragon Disclaimer This electronic medical record was generated, in whole or in part, using a voice recognition dictation system. Departure Departure Impression: Primary Impression: Ureteral stone with hydronephrosis Disposition: HOME, SELF-CARE Condition: IMPROVED Referrals: NO PCP (PCP) Patient Instructions: Kidney Stones Additional Instructions: Follow-up with a urologist in the next 5-7 days for recheck. Take medication as directed. Return to the emergency department with any new or concerning symptoms Scripts Ondansetron Hcl (ZOFRAN) 4 Mg Tablet 1 TAB PO Q8HRS PRN for NAUSEA, #20 TAB Prov: ANITA LOPEZ DO 09/07/18 Hydrocodone/Apap 5-325 (NORCO 5-325 TABLET) 1 Each Tablet 1 TAB PO PRN Q6HRS PRN for PAIN, #15 TAB 0 Refills Prov: ANITA LOPEZ DO 09/07/18 Tamsulosin Hcl (FLOMAX) 0.4 Mg Cap.er.24h 1 CAP PO DAILY, #30 CAP 11 Refills Prov: ANITA LOPEZ DO 09/07/18 ANITA LOPEZ DO Sep 07, 2018 10:09
[2018-09-07 10:14] LABS: BASO # 0.1 x10^3/uL (0.0-0.2); BASO % 1 % (0-3); EOS % 0 % (0-3); HEMATOCRIT 32.2 % (36.0-47.0); HEMOGLOBIN 10.5 g/dL (12.0-15.5); LYMPH # 1.5 x10^3/uL (1.0-4.8); LYMPH % 12 % (24-48); MEAN CORPUSCULAR HEMOGLOBIN 22 pg (25-35); MEAN CORPUSCULAR HGB CONC 33 g/dL (31-37); MEAN CORPUSCULAR VOLUME 68 fL (79-100); MONO # 0.4 x10^3/uL (0.0-1.1); MONO % 4 % (0-9); NEUT # 10.4 x10^3/uL (1.8-7.7); NEUT % 84 % (31-73); PLATELET COUNT 409 x10^3/uL (140-400); RED BLOOD COUNT 4.74 x10^6/uL (3.50-5.40); RED CELL DISTRIBUTION WIDTH 17.1 % (11.5-14.5); WHITE BLOOD COUNT 12.4 x10^3/uL (4.0-11.0)
[2018-09-07 10:16] LABS: BILIRUBIN,URINE NEGATIVE (NEG); CLARITY,URINE CLEAR; COLOR,URINE YELLOW; NITRITE,URINE NEGATIVE (NEG); PH,URINE 7.5; PROTEIN,URINE NEGATIVE (NEG-TRACE)
[2018-09-07 10:35] LABS: CALCIUM 9.3 mg/dL (8.5-10.1); CREATININE 0.8 mg/dL (0.6-1.0); GFR 83.1; POTASSIUM 3.9 mmol/L (3.5-5.1)
[2018-09-07 10:36] LABS: BACTERIA,URINE 0 /HPF (0-FEW); RBC,URINE 0 /HPF (0-2); SQUAMOUS EPITHELIAL CELL,UR MOD /LPF; WBC,URINE OCC /HPF (0-4)
[2018-09-07 10:41] LABS: ALBUMIN 3.9 g/dL (3.4-5.0); TOTAL BILIRUBIN 0.3 mg/dL (0.2-1.0); TOTAL PROTEIN 7.8 g/dL (6.4-8.2)
--- NOTE | 2018-09-07 10:54 | RAD ---
Examination: CT of the abdomen pelvis without contrast History: Right lower quadrant abdominal pain COMPARISON: None available TECHNIQUE: Axial CT images of the abdomen and pelvis without contrast. Coronal and sagittal reformats are performed Exposure: One or more of the following individualized dose reduction techniques were utilized for this examination: 1. Automated exposure control 2. Adjustment of the mA and/or kV according to patient size 3. Use of iterative reconstruction technique FINDINGS: The bibasilar lungs are clear. No evidence of free air identified in the abdomen. The evaluation of the solid organs is limited due to lack of IV contrast. The evaluation of bowel is limited due to lack of oral contrast. The visualized liver demonstrates mild diffuse decreased attenuation. The visualized spleen, adrenals grossly appears unremarkable. The gallbladder is mildly distended. The stomach is mildly distended. The visualized pancreas grossly appears unremarkable. The small bowel is nondilated. The appendix is normal. Feces and gas noted in the colon. Moderate right-sided hydronephrosis and hydroureter identified with a 4 mm calculus distal to the right ureterovesical junction. A 2 mm calculus identified in the left kidney. Urinary bladder is mildly distended. The caliber of the aorta grossly appears unremarkable. No evidence of lytic bony destructive lesion. IMPRESSION: 1. Moderate right-sided hydronephrosis and hydroureter with a 4 mm calculus identified just distal to the right ureterovesical junction. 2. Punctate 2 mm calculus left kidney. 3. Hepatic steatosis. Electronically signed by: Tommy Alcantara MD (09/07/2018 10:51 AM) [id number]
[2018-09-07] MEDS ORDERED: TAMS0.4C97 PO (11:16)
[2018-09-07] MEDS ORDERED: HYDR-3164 PO (11:16)
[2018-09-07] MEDS ORDERED: ONDA4TAB7 PO (11:16)
[2018-09-07 11:29] VITALS: BP 134/78
[2018-09-07] MEDS ORDERED: TAMSULOSIN 0.4 MG CAP.ER.24H. PO ONE (11:30)
[2018-09-07] MEDS ORDERED: KETOROLAC 30 MG/ML VIAL. IV ONE (11:30)
[2018-09-07 11:31] LABS: PLT ESTIMATE ADEQUATE (ADEQUATE)
[2018-09-07 11:32] LABS: ANISOCYTOSIS SLIGHT; HYPOCHROMIA PRESENT
== END 2018-09-07 11:37 | disposition home or self-care (01) ==
LOC: ER 09:25
DX: N13.2 Hydronephrosis with renal and ureteral calculous obstruction (principal)
CPT/HCPCS: 36415; 74176; 80053; 81001; 81025; 83690; 85025; 96374; 96375; 99285; J1885; J2405; J3010